=== PATIENT | male | born 1985 | race Caucasian/White ===

== ENCOUNTER 2019-11-06 13:43 | Observation (INO) | payer BC ==
[2019-11-06] MEDS ORDERED: cefOXitin 2 GM in Premix Bag 1 BAG IV ONE (14:18)
--- NOTE | 2019-11-06 14:25 | PCM.HP.2 ---
H&P History of Present Illness - General Date of Service: 11/06/19 Admit Problem/Dx: Acute abdomen Source of Information: Patient History Limitations: Reports: No Limitations - History of Present Illness Initial Comments - Free Text/Narative: Patient is a 34-year-old gentleman who presented to the emergency room in [place] earlier today with a 3 day history of abdominal pain with anorexia, nausea but no vomiting. Says he has been running a fever. Says he has felt a little constipated. 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 He does note difficulty standing up straight when he walks. He also notes pain on ambulation. States that if he hit a bump in the road, the pain is much more severe. Primarily in the right lower quadrant but does migrate across to the left lower quadrant. Symptom Onset Date: 11/03/19 Duration of Symptoms: Reports: Day(s): Location: Reports: Abdomen Quality: Reports: Ache, Pressure Severity: Moderate Improves with: Reports: Rest Worsens with: Reports: Movement Context: Reports: Sick Contact, Lifting, Exertion, Travel. Denies: Rest Associated Symptoms: Reports: Loss of Appetite, Nausea/Vomiting (No vomiting). Denies: Fever/Chills Lower Abdomen Pain Score (Numeric/FACES): 6 - Related Data Allergies/Adverse Reactions: Allergies Allergy/AdvReac Type Severity Reaction Status Date / Time No Known Allergies Allergy Verified 12/19/13 15:29 Home Medications: Home Meds Lisinopril 2 tab PO DAILY 03/02/16 [History] Past Medical History Cardiovascular History: Reports: Hypertension, Other (See Below) Musculoskeletal History: Reports: Other (See Below) Endocrine/Metabolic History: Reports: Obesity/BMI 30+ - Past Surgical History HEENT Surgical History: Reports: Oral Surgery Social & Family History - Family History Other GI Family History: Family history of colon cancer Other Family History: Nephew had malignant hyperthermia - Tobacco Use Tobacco Use Within Last Twelve Months: No - Alcohol Use Alcohol Use History: Yes Alcohol Use Frequency: Rarely H&P Review of Systems - Review of Systems: Review Of Systems: See Below General: Reports: Fever, Malaise, Decreased Appetite. Denies: Chills, Weight Loss HEENT: Reports: No Symptoms Pulmonary: Denies: Shortness of Breath, Wheezing Cardiovascular: Denies: Chest Pain, Palpitations Gastrointestinal: Reports: Abdominal Pain, Anorexia, Flatus, Nausea. Denies: Black Stool, Bloody Stool, Constipation, Diarrhea, Distension, Hematemesis, Hematochezia, Melena, Vomiting Genitourinary: Denies: Dysuria, Frequency, Burning, Pain, Urgency Musculoskeletal: Reports: No Symptoms Skin: Denies: Cyanosis, Jaundice, Mottled, Pallor, Diaphoresis, Dryness, Bruising Psychiatric: Denies: Confusion, Depression, Mood Lability, Anxiety Neurological: Denies: Confusion, Dizziness, Headache Hematologic/Lymphatic: Reports: No Symptoms Immunologic: Reports: No Symptoms Exam - Exam Exam: See Below - Vital Signs Vital Signs: Last Vital Signs Temp 96.7 F L 11/06/19 13:55 Pulse 122 H 11/06/19 13:55 Resp 18 11/06/19 13:55 BP 144/100 H 11/06/19 13:55 Pulse Ox 97 11/06/19 13:55 Weight: 213 lb 6.519 oz - Exam General: Alert, Oriented, Cooperative, Moderate Distress HEENT: Conjunctiva Clear, Nares Patent, Pupils Equal, Pupils Reactive. No: Scleral Icterus Neck: Supple, Trachea Midline Lungs: Clear to Auscultation, Normal Respiratory Effort Cardiovascular: Regular Rate, Regular Rhythm, Normal S1, Normal S2 GI/Abdominal Exam: Normal Bowel Sounds, Soft, No Distention, No Mass, Guarding, Rebound, Tender. No: Rigid (Male) Exam: No Hernia Rectal (Males) Exam: Deferred Back Exam: Normal Inspection, Full Range of Motion Extremities: Normal Inspection, Normal Range of Motion, Normal Capillary Refill Peripheral Pulses: 4+: Posterior Tibial (L), Posterior Tibial (R), Dorsalis Pedis (L), Dorsalis Pedis (R) Skin: Warm, Dry, Intact Neurological: Cranial Nerves Intact Neuro Extensive - Mental Status: Alert, Oriented x3 Psychiatric: Alert, Normal Affect, Normal Mood Sepsis Event Note - Evaluation Sepsis Screening Result: No Definite Risk - Focused Exam Vital Signs: Vital Signs Temp Pulse Resp BP Pulse Ox 11/06/19 13:55 96.7 F L 122 H 18 144/100 H 97 Date Exam was Performed: 11/06/19 Time Exam was Performed: 14:20 - Problem List (1) Appendicitis SNOMED Code(s): 00649637 ICD Code: K37 - UNSPECIFIED APPENDICITIS Status: Acute Priority: High Current Visit: Yes Qualifiers: Appendicitis type: acute appendicitis Acute appendicitis type: with localized peritonitis Appendicitis gangrene presence: unspecified whether gangrene present Appendicitis perforation presence: without perforation Appendicitis abscess presence: unspecified whether abscess present Qualified Code(s): K35.30 - Acute appendicitis with localized peritonitis, without perforation or gangrene Problem List Initiated/Reviewed/Updated: Yes Orders Last 24hrs: Active Orders 24 hr Category Date Time Status Antiembolic Devices [RC] PER UNIT ROUTINE Care 11/06/19 14:18 Ordered Insert Urinary Catheter [OM.PC] Timed Care 11/06/19 14:18 Ordered Oxygen Therapy [RC] ASDIRECTED Care 11/06/19 14:18 Ordered RT Incentive Spirometry [RC] Q1HWA Care 11/06/19 14:18 Ordered Skin Preparation [RC] .PREOP Care 11/06/19 14:18 Ordered Urinary Catheter Assessment [RC] ASDIRECTED Care 11/06/19 14:18 Ordered Urinary Catheter Assessment [RC] ASDIRECTED Care 11/06/19 14:18 Ordered Urinary Catheter Assessment [RC] ASDIRECTED Care 11/06/19 14:18 Ordered Vital Signs [RC] PER UNIT ROUTINE Care 11/06/19 14:18 Ordered Nothing Per Oral Diet [DIET] Diet 11/06/19 Lunch Ordered CORONAVIRUS COVID-19 PCR PHL Stat Lab 11/06/19 13:51 Ordered Lactated Ringers @ 125 MLS/HR(1000ml) Med 11/06/19 14:30 Ordered Lactated Ringers [Ringers, Lactated] 1,000 ml IV ASDIRECTED cefOXitin [Mefoxin in Dextrose,Iso-Osm 2 GM/50 ML] 2 gm Med 11/06/19 14:18 Ordered Premix Bag 1 bag IV ONETIME Antiembolic Hose [OM.PC] Routine Oth 11/06/19 14:18 Ordered Resuscitation Status Routine Resus Stat 11/06/19 14:18 Ordered Medication Orders Lactated Ringer's (Ringers, Lactated) 1,000 mls @ 125 mls/hr IV ASDIRECTED MICHAEL Cefoxitin Sodium 2 gm/ Premix 50 mls @ 100 mls/hr IV ONETIME ONE Stop: 11/06/19 14:47 Assessment/Plan Comment:: CT scan of the abdomen done in [place] does reveal acute appendicitis with an 11 mm appendix and periappendiceal stranding. Laparoscopic appendectomy, possible open appendectomy. Both operative procedures, along with the risks, including, but not limited to, bleeding, infection, pneumonia, deep venous thrombosis, pulmonary emboli, myocardial infarction, and adjacent organ injury have been reviewed with the patient who voices understanding, offers no questions and agrees to proceed. - Mortality Measure Prognosis:: Good
[2019-11-06] MEDS ORDERED: Lactated Ringers 1,000 ML IV SCH (14:30)
[2019-11-06] MEDS ORDERED: fentaNYL 250 MCG/5 ML SDV ONE (14:59)
[2019-11-06] MEDS ORDERED: Propofol 200 MG/20 ML SDV ONE ×4 (14:59→18:07)
[2019-11-06] MEDS ORDERED: Ondansetron 4 MG/2 ML SDV ONE (15:00)
[2019-11-06] MEDS ORDERED: Ketorolac 30 MG/ML SDV ONE (15:00)
[2019-11-06] MEDS ORDERED: HYDROmorphone 2 MG/ML Syringe ONE (15:00)
[2019-11-06] MEDS ORDERED: Midazolam 1 MG/ML 2 ML SDV ONE (15:00)
[2019-11-06] MEDS ORDERED: Lidocaine 2% 5 ML SDV ONE (15:00)
[2019-11-06] MEDS ORDERED: Rocuronium Bromide 50 MG/5 ML Syringe ONE (15:00)
[2019-11-06] MEDS ORDERED: Ketamine 500 mg/10 ML MDV ONE (15:01)
[2019-11-06] MEDS ORDERED: Bupivacaine 0.5% 10 ML SDV ONE (15:04)
[2019-11-06] MEDS ORDERED: ceFAZolin 1 GM Vial ONE ×2 (15:04→17:37)
[2019-11-06] MEDS ORDERED: Sugammadex Sodium 200 MG/2 ML VIAL ONE (15:24)
--- NOTE | 2019-11-06 15:56 | PCM.PREANE ---
Preanesthetic Assessment - Procedure Proposed Procedure: Laparoscopic, possible open, appendectomy under general anesthesia with ETT - Anesthesia/Transfusion/Family Hx Anesthesia History: Prior Anesthesia Without Reaction Other Type of Anesthesia Reaction Comment: h/o malignant hypertermia, nephew- nobody else in the family Transfusion History: No Prior Transfusion(s) - Review of Systems General: Fever, Appetite (Poor appetite s/t pain for 3 days), Other (Pt reports fever for 1-2 days with abd. pain. COVID test negative.) Pulmonary: No Symptoms Cardiovascular: No Symptoms Gastrointestinal: Abdominal Pain (abd pain for three days), Decreased Appetite Neurological: No Symptoms Other: Reports: None - Physical Assessment NPO Status Date: 11/06/19 NPO Status Time: 09:00 (Sips of water at 0900, no solids since before midnight) Vital Signs: Last Vital Signs Temp 35.9 C L 11/06/19 13:55 Pulse 122 H 11/06/19 13:55 Resp 18 11/06/19 13:55 BP 144/100 H 11/06/19 13:55 Pulse Ox 97 11/06/19 13:55 Height: 1.73 m Weight: 96.8 kg ASA Class: 2E Airway Class: Mallampati = 2 Dentition: Reports: Broken Tooth/Teeth (dentition moderate, with various chips present.) Thyro-Mental Finger Breadths: 3 Mouth Opening Finger Breadths: 3 - Lab Values: Laboratory Last Values SARS Virus RNA (PCR) NEGATIVE (NEGATIVE) 11/06/19 14:12 - Allergies Allergies/Adverse Reactions: Allergies Allergy/AdvReac Type Severity Reaction Status Date / Time No Known Allergies Allergy Verified 11/06/19 14:43 - Anesthesia Plan Free Text/Narrative:: Family (nephew) history of malignant hyperthermia. Anesthesia machine with vaporizers removed flushed for 5 hours with high flow air/O2 and MH specialty filters. All MH triggering meds and gasses avoided. Plan for ETT and TIVA with propofol, ketamine, rocuronium, and narcotic. Med Last Dose Date: 11/05/19 (Lisinopril last taken yesterday) - Acknowledgements Anesthesia Type Planned: General Anesthesia Pt an Appropriate Candidate for the Planned Anesthesia: Yes Alternatives and Risks of Anesthesia Discussed w Pt/Guardian: Yes Pt/Guardian Understands and Agrees with Anesthesia Plan: Yes Additional Comments: Risks, benefits, alternatives of GA discussed with patient. All questions answ ered and concerns addressed. Consent signed with RN as witness. PreAnesthesia Questionnaire Cardiovascular History: Reports: Hypertension, Other (See Below) Respiratory History: Reports: None Gastrointestinal History: Reports: None Genitourinary History: Reports: None Musculoskeletal History: Reports: Other (See Below) Neurological History: Reports: None Psychiatric History: Reports: None Endocrine/Metabolic History: Reports: Obesity/BMI 30+ Hematologic History: Reports: None Immunologic History: Reports: None Oncologic (Cancer) History: Reports: None Dermatologic History: Reports: None - Infectious Disease History Infectious Disease History: Reports: None - Past Surgical History HEENT Surgical History: Reports: Oral Surgery - SUBSTANCE USE Smoking Status *Q: Former Smoker Tobacco Use Within Last Twelve Months: No Recreational Drug Use History: No - HOME MEDS Home Medications: Home Meds Lisinopril 2 tab PO DAILY 03/02/16 [History] - CURRENT (IN HOUSE) MEDS Current Meds: Current Medications Lactated Ringer's (Ringers, Lactated) 1,000 mls @ 125 mls/hr IV ASDIRECTED [facility] Last Admin: 11/06/19 15:43 Dose: 125 mls/hr Documented by: Discontinued Medications Bupivacaine HCl (Sensorcaine-Mpf 0.5%) Confirm Administered Dose 10 ml .ROUTE .STK-MED ONE Stop: 11/06/19 15:05 Cefazolin Sodium (Ancef) Confirm Administered Dose 1 gm .ROUTE .STK-MED ONE Stop: 11/06/19 15:05 Fentanyl (Sublimaze) Confirm Administered Dose 250 mcg .ROUTE .STK-MED ONE Stop: 11/06/19 15:00 Hydromorphone HCl (Dilaudid) Confirm Administered Dose 2 mg .ROUTE .STK-MED ONE Stop: 11/06/19 15:01 Cefoxitin Sodium 2 gm/ Premix 50 mls @ 100 mls/hr IV ONETIME ONE Stop: 11/06/19 14:47 Last Admin: 11/06/19 15:43 Dose: 100 mls/hr Documented by: Ketamine HCl (Ketalar) Confirm Administered Dose 500 mg .ROUTE .STK-MED ONE Stop: 11/06/19 15:02 Ketorolac Tromethamine (Toradol) Confirm Administered Dose 30 mg .ROUTE .STK-MED ONE Stop: 11/06/19 15:01 Lidocaine (Xylocaine-Mpf 2%) Confirm Administered Dose 5 ml .ROUTE .STK-MED ONE Stop: 11/06/19 15:01 Midazolam HCl (Versed 1 Mg/Ml) Confirm Administered Dose 2 mg .ROUTE .STK-MED ONE Stop: 11/06/19 15:01 Ondansetron HCl (Zofran) Confirm Administered Dose 4 mg .ROUTE .STK-MED ONE Stop: 11/06/19 15:01 Propofol (Diprivan 20 Ml) Confirm Administered Dose 800 mg .ROUTE .STK-MED ONE Stop: 11/06/19 15:00 Rocuronium [place] (Rocuronium [place]) Confirm Administered Dose 50 mg .ROUTE .STK-MED ONE Stop: 11/06/19 15:01 Sugammadex Sodium (Bridion) Confirm Administered Dose 200 mg .ROUTE .STK-MED ONE Stop: 11/06/19 15:25
[2019-11-06] MEDS ORDERED: Morphine 10 MG/ML Syringe IVPUSH PRN (18:48)
[2019-11-06] MEDS ORDERED: Ondansetron 4 MG/2 ML SDV IVPUSH PRN (18:48)
[2019-11-06] MEDS ORDERED: Acetaminophen 325 MG Tab PO PRN (18:48)
--- NOTE | 2019-11-06 18:52 | PCM.OPNOTE ---
- General Post-Op/Procedure Note Date of Surgery/Procedure: 11/06/19 Operative Procedure(s): Laparoscopic appendectomy Pre Op Diagnosis: Acute abdomen, clinically appendicitis Post-Op Diagnosis: Ruptured appendix with abscess Anesthesia Technique: General ET Tube (ASA IIE) Primary Surgeon: Marquis Parrish Reimbursement Auditor: Courtney Rojas Fluid Replacement, Intraop: 1,200 Output, Urine Amount: 30 EBL in mLs: 10 Surgical Drain/Tube Type: Davi Bettencourt Flat Drain Condition: Stable Free Text/Narrative:: Intake & Output 11/06/19 11/06/19 11/06/19 03:59 11:59 19:59 Output Total 30 Balance -30 DICTATION [id number] CPT CODE 72529
--- NOTE | 2019-11-06 20:30 | PCM.POSTAN ---
POST ANESTHESIA ASSESSMENT - MENTAL STATUS Mental Status: Alert, Oriented - VITAL SIGNS Vital Signs: Last Vital Signs Temp 37.4 C 11/06/19 18:47 Pulse 103 H 11/06/19 20:00 Resp 10 L 11/06/19 20:00 BP 122/52 L 11/06/19 20:00 Pulse Ox 94 L 11/06/19 20:00 - RESPIRATORY Respiratory Status: Respiratory Rate WNL, Airway Patent, O2 Saturation Stable - CARDIOVASCULAR CV Status: Pulse Rate WNL, Blood Pressure Stable - GASTROINTESTINAL GI Status: No Symptoms - PAIN Pain Score: 0 (Denies pain) - POST OP HYDRATION Hydration Status: Adequate & Stable - OBSERVATIONS Free Text/Narrative:: Patient on RA with O2 SAT 95%, denies pain. Occasional tachycardia, but improved from preop. baseline.
--- NOTE | 2019-11-06 20:30 | PCM48HPAN ---
Post Anesthesia Note - EVALUATION WITHIN 48HRS OF ANESTHETIC Vital Signs in Normal Range: Yes Patient Participated in Evaluation: Yes Respiratory Function Stable: Yes Airway Patent: Yes Cardiovascular Function Stable: Yes Hydration Status Stable: Yes Pain Control Satisfactory: Yes Nausea and Vomiting Control Satisfactory: Yes Mental Status Recovered: Yes Vital Signs: Last Vital Signs Temp 37.4 C 11/06/19 18:47 Pulse 103 H 11/06/19 20:00 Resp 10 L 11/06/19 20:00 BP 122/52 L 11/06/19 20:00 Pulse Ox 94 L 11/06/19 20:00
[2019-11-06] MEDS: Lactated Ringers 1,000 ML IV SCH (20:41)
[2019-11-06] MEDS: cefOXitin 1 GM in Premix Bag 1 BAG IV SCH (20:46)
--- NOTE | 2019-11-06 23:14 | OR ---
SURGEON: Marquis Parrish M.D. DATE OF PROCEDURE: 11/06/2019 OPERATION PERFORMED: Laparoscopic appendectomy. PRIMARY SURGEON: Marquis Parrish MD HOME THEATER SPECIALIST: Bag Grader: GEOFFREY Matos student. ANESTHESIA: General endotracheal. ASA CLASSIFICATION: IIE. PREOPERATIVE DIAGNOSIS: Acute abdomen, appendicitis clinically and by radiologic criteria. POSTOPERATIVE DIAGNOSIS: Ruptured appendicitis with abscess. ESTIMATED BLOOD LOSS: 10 mL. INTRAOPERATIVE FLUID REPLACEMENT: 1200 mL of crystalloid. INTRAOPERATIVE URINARY OUTPUT: 30 mL. DESCRIPTION OF PROCEDURE: The patient was taken to the operating room and placed on the operating table in the supine position. Time-out was called for appropriate identification of the patient and procedure. Sequential compression boots were placed. Following satisfactory attainment of general endotracheal anesthesia, a Duque catheter was placed in the patient's urinary bladder. The abdomen was prepped with DuraPrep solution and sterile drapes were applied. The skin just above the umbilicus was infiltrated with 3 mL of 0.5% plain Marcaine. Skin incision was made and deepened through the subcutaneous tissue obtaining hemostasis with the use of electrocautery. The Veress needle was introduced into the peritoneal cavity. Saline drop test was positive. Carbon dioxide pneumoperitoneum was established with the release set at 13 cm of water. Once a satisfactory pneumoperitoneum was established, the 5 mm camera and port were placed through the supraumbilical position. Under camera vision, 12 mm suprapubic and 5 mm left lower quadrant ports were placed. Each incision was preemptively infiltrated with 0.5% plain Marcaine solution. After the incisions had been made, hemostasis was obtained with the use of electrocautery. With the 12 mm port in the suprapubic position and the 5 mm port in the left lower quadrant position, the patient was now positioned with his head down and rolled to the left. The appendix was stuck in the right lower quadrant and clearly had ruptured with a large amount of cloudy purulent-appearing fluid present. Much of this fluid was able to be aspirated. Once the appendix was mobilized, the mesoappendix was taken down with the Harmonic scalpel. The base of the appendix was transected with the Endo-BASSEM 45 mm stapler with a blue load. The appendix was promptly placed in an endocatch and maintained in situ. The pelvis and right lower quadrant were irrigated with 1 L of 2% Ancef solution followed by another liter of sterile saline. All fluid was aspirated. With the Endo Catch still in place, a 10 mm flat Davi-Bettencourt drain was placed in the right paracolic gutter. This was held in place with the two-prong grasper until the Endo Catch containing appendix and 12 mm port could be removed. The drain was then secured to the skin with a 2-0 silk suture. Wounds were inspected for hemostasis and no other bleeding was noted. Under camera vision, the left lower quadrant port was removed and finally the supraumbilical camera and port were removed. Wounds again were inspected for hemostasis. No bleeding was noted. All incisions were closed in 2 layers approximating the subcutaneous tissue with 3-0 Vicryl and the skin with skin clips. The supraumbilical and left lower quadrant incisions were dressed with sterile Tegaderm pads. The suprapubic incision was dressed with drain sponges taped in place with Mefix tape. Duque catheter was removed prior to emergence from anesthesia. Following emergence from anesthesia and extubation, the patient was taken to recovery room in stable condition. SAMAN / CLIFTON /[id number]
[2019-11-07] MEDS: Acetaminophen/HYDROcodone 325-5 MG Tab PO PRN ×3 (00:37→12:21)
[2019-11-07] MEDS: cefOXitin 1 GM in Premix Bag 1 BAG IV SCH ×4 (02:11→20:03)
[2019-11-07] MEDS: Lactated Ringers 1,000 ML IV SCH ×2 (05:48→14:06)
--- NOTE | 2019-11-07 08:35 | PCM48HPAN ---
Post Anesthesia Note - EVALUATION WITHIN 48HRS OF ANESTHETIC Vital Signs in Normal Range: Yes Patient Participated in Evaluation: Yes Respiratory Function Stable: Yes Airway Patent: Yes Cardiovascular Function Stable: Yes Hydration Status Stable: Yes Pain Control Satisfactory: Yes (Pt reports gen abd. tenderness, 4-08/10, with ongoing pain management. ) Nausea and Vomiting Control Satisfactory: Yes (Denies nausea.) Mental Status Recovered: Yes Vital Signs: Last Vital Signs Temp 36.2 C 11/07/19 08:00 Pulse 85 11/07/19 08:00 Resp 18 11/07/19 08:00 BP 134/83 11/07/19 08:00 Pulse Ox 94 L 11/07/19 08:00
[2019-11-07] MEDS ORDERED: Morphine 4 MG/ML Syringe IVPUSH PRN (08:51)
--- NOTE | 2019-11-07 08:51 | PCM.SURGPN ---
- General Info Date of Service: 11/07/19 POD#: 1 Post-Op Diagnosis: Ruptured appendicitis w/ abscess Functional Status: Reports: Pain Controlled, Tolerating Diet, Urinating. Denies: New Symptoms - Review of Systems General: Reports: Weakness, Fatigue. Denies: Fever HEENT: Reports: No Symptoms Pulmonary: Reports: Shortness of Breath, Cough Cardiovascular: Reports: Chest Pain Gastrointestinal: Reports: Abdominal Pain (incisional), Decreased Appetite, Nausea, Vomiting Genitourinary: Reports: Dysuria, Frequency, Burning Musculoskeletal: Reports: Shoulder Pain Skin: Reports: Cyanosis, Jaundice Neurological: Reports: No Symptoms Psychiatric: Reports: Confusion, Anxiety - Patient Data Vitals - Most Recent: Last Vital Signs Temp 97.2 F 11/07/19 08:00 Pulse 85 11/07/19 08:00 Resp 18 11/07/19 08:00 BP 134/83 11/07/19 08:00 Pulse Ox 94 L 11/07/19 08:00 Weight - Most Recent: 214 lb 4.629 oz I&O - Last 24 Hours: Intake & Output 11/06/19 11/07/19 11/07/19 19:59 03:59 11:59 Intake Total 1200 100 370 Output Total 60 275 Balance 1140 100 95 Lab Results Last 24 Hrs: Laboratory Results - last 24 hr 11/06/19 Range/Units 14:12 SARS Virus RNA (PCR) NEGATIVE (NEGATIVE) Med Orders - Current: Current Medications Acetaminophen (Tylenol) 325 mg PO Q4H PRN PRN Reason: Fever Greater Than 101 Hydrocodone Bitart/Acetaminophen (Barney 325-5 Mg) 1 - 2 tab PO Q4H PRN PRN Reason: Pain (moderate 4-6) Last Admin: 11/07/19 07:37 Dose: 2 tab Documented by: Lactated Ringer's (Ringers, Lactated) 1,000 mls @ 125 mls/hr IV ASDIRECTED [facility] Last Admin: 11/07/19 05:48 Dose: 125 mls/hr Documented by: Cefoxitin Sodium 1 gm/ Premix 50 mls @ 100 mls/hr IV Q6H [facility] Stop: 11/09/19 20:01 Last Admin: 11/07/19 07:40 Dose: 100 mls/hr Documented by: Morphine Sulfate (Morphine) 0 mg IVPUSH Q1H PRN PRN Reason: Pain (severe 7-10) Last Admin: 11/07/19 04:30 Dose: 2 mg Documented by: Ondansetron HCl (Zofran) 4 mg IVPUSH Q6H PRN PRN Reason: Nausea/Vomiting Discontinued Medications Bupivacaine HCl (Sensorcaine-Mpf 0.5%) Confirm Administered Dose 10 ml .ROUTE .STK-MED ONE Stop: 11/06/19 15:05 Cefazolin Sodium (Ancef) Confirm Administered Dose 1 gm .ROUTE .STK-MED ONE Stop: 11/06/19 15:05 Cefazolin Sodium (Ancef) Confirm Administered Dose 1 gm .ROUTE .STK-MED ONE Stop: 11/06/19 17:38 Fentanyl (Sublimaze) Confirm Administered Dose 250 mcg .ROUTE .STK-MED ONE Stop: 11/06/19 15:00 Hydromorphone HCl (Dilaudid) Confirm Administered Dose 2 mg .ROUTE .STK-MED ONE Stop: 11/06/19 15:01 Lactated Ringer's (Ringers, Lactated) 1,000 mls @ 125 mls/hr IV ASDIRECTED [facility] Last Admin: 11/06/19 15:43 Dose: 125 mls/hr Documented by: Cefoxitin Sodium 2 gm/ Premix 50 mls @ 100 mls/hr IV ONETIME ONE Stop: 11/06/19 14:47 Last Admin: 11/06/19 15:43 Dose: 100 mls/hr Documented by: Acetaminophen (Ofirmev) Confirm Administered Dose 100 mls @ as directed .ROUTE .STK-MED ONE Stop: 11/06/19 17:46 Ketamine HCl (Ketalar) Confirm Administered Dose 500 mg .ROUTE .STK-MED ONE Stop: 11/06/19 15:02 Ketorolac Tromethamine (Toradol) Confirm Administered Dose 30 mg .ROUTE .STK-MED ONE Stop: 11/06/19 15:01 Lidocaine (Xylocaine-Mpf 2%) Confirm Administered Dose 5 ml .ROUTE .STK-MED ONE Stop: 11/06/19 15:01 Midazolam HCl (Versed 1 Mg/Ml) Confirm Administered Dose 2 mg .ROUTE .STK-MED ONE Stop: 11/06/19 15:01 Ondansetron HCl (Zofran) Confirm Administered Dose 4 mg .ROUTE .STK-MED ONE Stop: 11/06/19 15:01 Propofol (Diprivan 20 Ml) Confirm Administered Dose 800 mg .ROUTE .STK-MED ONE Stop: 11/06/19 15:00 Propofol (Diprivan 20 Ml) Confirm Administered Dose 200 mg .ROUTE .STK-MED ONE Stop: 11/06/19 17:56 Propofol (Diprivan 20 Ml) Confirm Administered Dose 200 mg .ROUTE .STK-MED ONE Stop: 11/06/19 18:08 Propofol (Diprivan 20 Ml) Confirm Administered Dose 200 mg .ROUTE .STK-MED ONE Stop: 11/06/19 18:08 Rocuronium [place] (Rocuronium Herculaneum) Confirm Administered Dose 50 mg .ROUTE .STK-MED ONE Stop: 11/06/19 15:01 Sugammadex Sodium (Bridion) Confirm Administered Dose 200 mg .ROUTE .STK-MED ONE Stop: 11/06/19 15:25 - Exam Wound/Incisions: Dressing Dry and Intact, Erythema, Erythema Improving Quality Assessment: Supplemental Oxygen General: Alert, Oriented, Cooperative, No Acute Distress HEENT: Pupils Equal, Pupils Reactive Neck: Supple Lungs: Clear to Auscultation, Normal Respiratory Effort Cardiovascular: Regular Rate, Regular Rhythm. No: Tachycardia GI/Abdominal Exam: Normal Bowel Sounds, Soft, Non-Tender, No Distention Extremities: Normal Inspection Skin: Warm, Dry, Intact Psy/Mental Status: Alert, Normal Affect, Normal Mood Sepsis Event Note - Evaluation Sepsis Screening Result: No Definite Risk - Focused Exam Vital Signs: Vital Signs Temp Pulse Resp BP Pulse Ox 11/07/19 08:00 97.2 F 85 18 134/83 94 L 11/07/19 04:00 97.9 F 82 17 121/68 97 11/06/19 23:15 98.3 F 94 17 108/72 97 11/06/19 23:00 98 11/06/19 22:58 17 98 11/06/19 22:55 95 16 115/58 L 89 L 11/06/19 22:15 98.3 F 94 17 115/58 L 93 L 11/06/19 21:45 87 17 120/69 95 11/06/19 21:15 97.3 F 94 17 116/56 L 95 11/06/19 21:00 93 18 116/55 L 93 L Date Exam was Performed: 11/07/19 Time Exam was Performed: 08:46 - Problem List & Annotations (1) Appendicitis SNOMED Code(s): 52455496 Code(s): K37 - UNSPECIFIED APPENDICITIS Status: Acute Priority: High Current Visit: Yes Qualifiers: Appendicitis type: acute appendicitis Acute appendicitis type: with localized peritonitis Appendicitis gangrene presence: unspecified whether gangrene present Appendicitis perforation presence: without perforation Appendicitis abscess presence: unspecified whether abscess present Qualified Code(s): K35.30 - Acute appendicitis with localized peritonitis, without perforation or gangrene - Problem List Review Problem List Initiated/Reviewed/Updated: Yes - My Orders Last 24 Hours: Active Orders 24 hr Category Date Time Status Admission Status [Patient Status] [ADT] Stat ADT 11/06/19 14:29 Active Patient Status [ADT] Routine ADT 11/07/19 08:15 Active Antiembolic Devices [RC] PER UNIT ROUTINE Care 11/06/19 14:18 Active Insert Urinary Catheter [OM.PC] Timed Care 11/06/19 14:18 Ordered Intake and Output [RC] Q12H Care 11/06/19 18:48 Active Oxygen Therapy [RC] ASDIRECTED Care 11/06/19 14:18 Active Oxygen Therapy [RC] PRN Care 11/06/19 18:47 Active Pulse Oximetry [RC] ASDIRECTED Care 11/06/19 18:47 Active RT Incentive Spirometry [RC] Q1HWA Care 11/06/19 14:18 Active RT Incentive Spirometry [RC] Q1HWA Care 11/06/19 18:47 Active Skin Preparation [RC] .PREOP Care 11/06/19 14:18 Active Up ad Diamond [RC] ASDIRECTED Care 11/06/19 18:48 Active Up ad Diamond [RC] PER UNIT ROUTINE Care 11/06/19 18:47 Active Vital Signs [RC] PER UNIT ROUTINE Care 11/06/19 14:18 Active Vital Signs [RC] Q4H Care 11/06/19 18:47 Active Advance Diet Instructions [DIET] Diet 11/06/19 Dinner Active Regular Diet [DIET] Diet 11/07/19 Breakfast Active Acetaminophen [Tylenol] Med 11/06/19 18:48 Active 325 mg PO Q4H PRN Acetaminophen/HYDROcodone [Barney 325-5 MG] Med 08/05/20 18:48 Active 1 - 2 tab PO Q4H PRN Lactated Ringers [Ringers, Lactated] 1,000 ml Med 11/06/19 19:00 Active IV ASDIRECTED Morphine Med 11/06/19 18:48 Active See Dose Instructions IVPUSH Q1H PRN Ondansetron [Zofran] Med 11/06/19 18:48 Active 4 mg IVPUSH Q6H PRN cefOXitin [Mefoxin in Dextrose,Iso-Osm 1 GM/50 ML] 1 gm Med 11/06/19 20:00 Active Premix Bag 1 bag IV Q6H Antiembolic Hose [OM.PC] Routine Oth 11/06/19 14:18 Ordered Resuscitation Status Routine Resus Stat 11/06/19 14:18 Ordered Medication Orders Acetaminophen (Tylenol) 325 mg PO Q4H PRN PRN Reason: Fever Greater Than 101 Hydrocodone Bitart/Acetaminophen (Barney 325-5 Mg) 1 - 2 tab PO Q4H PRN PRN Reason: Pain (moderate 4-6) Last Admin: 11/07/19 07:37 Dose: 2 tab Documented by: Admin: 11/07/19 00:37 Dose: 1 tab Documented by: OBDULIA Lactated Ringer's (Ringers, Lactated) 1,000 mls @ 125 mls/hr IV ASDIRECTED [facility] Last Admin: 11/07/19 05:48 Dose: 125 mls/hr Documented by: Infusion: 11/07/19 04:41 Dose: 125 mls/hr Documented by: Admin: 11/06/19 20:41 Dose: 125 mls/hr Documented by: OBDULIA Cefoxitin Sodium 1 gm/ Premix 50 mls @ 100 mls/hr IV Q6H [facility] Stop: 11/09/19 20:01 Last Admin: 11/07/19 07:40 Dose: 100 mls/hr Documented by: Infusion: 11/07/19 02:41 Dose: 100 mls/hr Documented by: Admin: 11/07/19 02:11 Dose: 100 mls/hr Documented by: Infusion: 11/06/19 21:16 Dose: 100 mls/hr Documented by: Admin: 11/06/19 20:46 Dose: 100 mls/hr Documented by: OBDULIA Morphine Sulfate (Morphine) 0 mg IVPUSH Q1H PRN PRN Reason: Pain (severe 7-10) Last Admin: 11/07/19 04:30 Dose: 2 mg Documented by: OBDULIA Ondansetron HCl (Zofran) 4 mg IVPUSH Q6H PRN PRN Reason: Nausea/Vomiting - Assessment Assessment (Free Text/Narrative):: Patient is improved from pre-op. Still c/o mild right sided pain. - Plan Plan (Free Text/Narrative):: Increase activity and diet. Recheck labs in am. Leave drain in.
[2019-11-07] MEDS ORDERED: Morphine 10 MG/ML Syringe IVPUSH PRN (09:00)
[2019-11-07] MEDS: metroNIDAZOLE/Normal Saline 500 MG in Premix Bag 1 BAG IV SCH ×2 (20:41→21:41)
--- NOTE | 2019-11-07 21:12 | PCM.SN.2 ---
- Free Text/Narrative Note: Called earlier this evening as patient had spiked a temperature to 102.4. Denied any shaking chills. Was noted to be mildly hypoxic which responded to 4 L of oxygen. Was also encouraged to use his incentive spirometer. Patient seen at 1 hrs. and currently denies any pain other than a headache. Specifically he denies abdominal pain. He states he is feeling much better. PHYSICAL EXAM: HEENT: Pupils are equal round react light and accommodation. No significant malar flush. CARDIORESPIRATORY: Lungs are clear to auscultation bilaterally. Heart is again regular rate and rhythm without significant tachycardia. ABDOMEN: Soft nontender. Hypoactive bowel sounds. Davi-Bettencourt is draining serous fluid. IMPRESSION: Postop fever most likely pulmonary in etiology. Blood cultures have been done. Labs are ordered for the morning to include a CBC with a manual differential and a BMP. We will continue IV fluids. Flagyl was added to the antibiotic regimen.
[2019-11-08] MEDS: Acetaminophen/HYDROcodone 325-5 MG Tab PO PRN ×5 (01:23→21:25)
[2019-11-08] MEDS: Lactated Ringers 1,000 ML IV SCH ×3 (01:24→21:27)
[2019-11-08] MEDS: cefOXitin 1 GM in Premix Bag 1 BAG IV SCH ×4 (01:25→20:07)
[2019-11-08] MEDS: metroNIDAZOLE/Normal Saline 500 MG in Premix Bag 1 BAG IV SCH ×3 (05:42→21:26)
[2019-11-08 06:56] LABS: BLOOD UREA NITROGEN,BUN 11 mg/dL (7.0-18.0); CARBON DIOXIDE,CO2 27.4 mmol/L (21.0-32.0); CHLORIDE,CL 98 mmol/L (98-107); GLUCOSE RANDOM 94 mg/dL (74-106); POTASSIUM,K 3.7 mmol/L (3.5-5.1); SODIUM,NA 135 mmol/L (136-148)
[2019-11-09] MEDS: cefOXitin 1 GM in Premix Bag 1 BAG IV SCH ×2 (01:53→08:55)
[2019-11-09] MEDS: Acetaminophen/HYDROcodone 325-5 MG Tab PO PRN ×2 (02:03→08:54)
[2019-11-09] MEDS: metroNIDAZOLE/Normal Saline 500 MG in Premix Bag 1 BAG IV SCH (05:06)
[2019-11-09] MEDS: Lactated Ringers 1,000 ML IV SCH (05:06)
--- NOTE | 2019-11-09 09:46 | PCM.DCSUM1 ---
Discharge Summary - Hospital Course Free Text/Narrative:: 34 y/o male admitted with acute appendicitis. Found to have a ruptured appendix with abscess. Has been recovering well. Kept on Mefoxin and Flagyl. WBC 10K yesterday. Remains afebrile. SaO2 does drop at night-suspect undiagnosed sleep apnea/hypoxia. HPI Initial Comments: See H&P - Discharge Data Discharge Date: 11/09/19 Discharge Disposition: Home, Self-Care 01 Condition: Stable - Referral to Home Health Primary Care Physician: Matthew Mancera MD - Discharge Diagnosis/Problem(s) (1) Appendicitis SNOMED Code(s): 07164077 ICD Code: K37 - UNSPECIFIED APPENDICITIS Status: Acute Priority: High Current Visit: Yes Qualifiers: Appendicitis type: acute appendicitis Acute appendicitis type: with localized peritonitis Appendicitis gangrene presence: unspecified whether gangrene present Appendicitis perforation presence: with perforation Appendicitis abscess presence: with abscess Qualified Code(s): K35.33 - Acute appendicitis with perforation and localized peritonitis, with abscess - Patient Summary/Data Operative Procedure(s) Performed: Laparoscopic appendectomy - Patient Instructions Diet: Usual Diet as Tolerated Activity: No Lifting Over 25 Pounds (For 6 weeks) Showering/Bathing: May Shower Wound/Incision Care: Keep Operative Site/Wound Site Clean and Dry Notify Provider of: Fever, Increased Pain Other/Special Instructions: See Dr. Parrish in 7-10 days as scheduled. - Discharge Plan Prescriptions/Med Rec: Ciprofloxacin HCl [Cipro] 500 mg PO BID 5 Days #10 tablet metroNIDAZOLE [Flagyl] 500 mg PO Q8H 5 Days #15 tab Acetaminophen/HYDROcodone [Francis 325-5 MG] 1 tab PO Q6H PRN 4 Days #15 tablet PRN Reason: Pain (Moderate 4-6) Home Medications: Home Meds Lisinopril 2 tab PO DAILY 03/02/16 [History] Acetaminophen/HYDROcodone [Francis 325-5 MG] 1 tab PO Q6H PRN 4 Days #15 tablet 11/08/19 [Rx] Ciprofloxacin HCl [Cipro] 500 mg PO BID 5 Days #10 tablet 11/08/19 [Rx] metroNIDAZOLE [Flagyl] 500 mg PO Q8H 5 Days #15 tab 11/08/19 [Rx] Patient Handouts: Acetaminophen; Hydrocodone tablets or capsules, Laparoscopic Appendectomy, Adult, Care After, Ciprofloxacin tablets, Appendicitis, Adult, [id number], Metronidazole tablets or capsules Referrals: Marquis Parrish MD [Emergency Provider] - 11/14/19 10:45 am - Discharge Summary/Plan Comment DC Time >30 min.: No - General Info Date of Service: 11/09/19 Admission Dx/Problem (Free Text: Acute abdomen Functional Status: Reports: Pain Controlled, Tolerating Diet, Ambulating, Urinating. Denies: New Symptoms - Review of Systems General: Denies: Fever, Weakness, Fatigue, Malaise HEENT: Reports: No Symptoms Pulmonary: Denies: Shortness of Breath, Cough Cardiovascular: Denies: Chest Pain, Palpitations, Dyspnea on Exertion Gastrointestinal: Denies: Abdominal Pain, Constipation, Decreased Appetite, Diarrhea, Nausea, Vomiting Genitourinary: Denies: Dysuria, Frequency, Burning, Pain, Urgency Musculoskeletal: Denies: Neck Pain, Shoulder Pain, Arm Pain Skin: Denies: Cyanosis, Jaundice, Mottled Neurological: Reports: No Symptoms Psychiatric: Reports: No Symptoms - Patient Data Vitals - Most Recent: Last Vital Signs Temp 96.6 F L 11/09/19 04:18 Pulse 87 11/09/19 04:18 Resp 17 11/09/19 04:18 BP 139/86 11/09/19 04:18 Pulse Ox 93 L 11/09/19 04:18 Weight - Most Recent: 214 lb 4.629 oz I&O - Last 24 hours: Intake & Output 11/08/19 11/09/19 11/09/19 19:59 03:59 11:59 Intake Total 4372 102 0670 Output Total 1340 1045 Balance 518 200 338 MARY Results - Last 24 hrs: Microbiology 11/07/19 20:35 Aerobic Blood Culture - Preliminary Blood - Venous - Lab Draw NO GROWTH AFTER 1 DAY Anaerobic Blood Culture - Preliminary NO GROWTH AFTER 1 DAY 11/07/19 20:22 Aerobic Blood Culture - Preliminary Blood - Venous NO GROWTH AFTER 1 DAY Anaerobic Blood Culture - Preliminary NO GROWTH AFTER 1 DAY Med Orders - Current: Current Medications Acetaminophen (Tylenol) 325 mg PO Q4H PRN PRN Reason: Fever Greater Than 101 Last Admin: 11/07/19 20:03 Dose: 325 mg Documented by: Hydrocodone Bitart/Acetaminophen (Francis 325-5 Mg) 1 - 2 tab PO Q4H PRN PRN Reason: Pain (moderate 4-6) Last Admin: 11/09/19 08:54 Dose: 2 tab Documented by: Lactated Ringer's (Ringers, Lactated) 1,000 mls @ 125 mls/hr IV ASDIRECTED [facility] Last Admin: 11/09/19 05:06 Dose: 125 mls/hr Documented by: Cefoxitin Sodium 1 gm/ Premix 50 mls @ 100 mls/hr IV Q6H [facility] Stop: 11/09/19 20:01 Last Admin: 11/09/19 08:55 Dose: 100 mls/hr Documented by: Metronidazole 500 mg/ Premix 100 mls @ 100 mls/hr IV Q8H [facility] Last Admin: 11/09/19 05:06 Dose: 100 mls/hr Documented by: Morphine Sulfate (Morphine) 0 mg IVPUSH Q1H PRN PRN Reason: Pain (severe 7-10) Last Admin: 11/07/19 17:21 Dose: 4 mg Documented by: Ondansetron HCl (Zofran) 4 mg IVPUSH Q6H PRN PRN Reason: Nausea/Vomiting Last Admin: 11/07/19 17:21 Dose: 4 mg Documented by: Discontinued Medications Bupivacaine HCl (Sensorcaine-Mpf 0.5%) Confirm Administered Dose 10 ml .ROUTE .STK-MED ONE Stop: 11/06/19 15:05 Cefazolin Sodium (Ancef) Confirm Administered Dose 1 gm .ROUTE .STK-MED ONE Stop: 11/06/19 15:05 Cefazolin Sodium (Ancef) Confirm Administered Dose 1 gm .ROUTE .STK-MED ONE Stop: 11/06/19 17:38 Fentanyl (Sublimaze) Confirm Administered Dose 250 mcg .ROUTE .STK-MED ONE Stop: 11/06/19 15:00 Hydromorphone HCl (Dilaudid) Confirm Administered Dose 2 mg .ROUTE .STK-MED ONE Stop: 11/06/19 15:01 Lactated Ringer's (Ringers, Lactated) 1,000 mls @ 125 mls/hr IV ASDIRECTED [facility] Last Admin: 11/06/19 15:43 Dose: 125 mls/hr Documented by: Cefoxitin Sodium 2 gm/ Premix 50 mls @ 100 mls/hr IV ONETIME ONE Stop: 11/06/19 14:47 Last Admin: 11/06/19 15:43 Dose: 100 mls/hr Documented by: Acetaminophen (Ofirmev) Confirm Administered Dose 100 mls @ as directed .ROUTE .STK-MED ONE Stop: 11/06/19 17:46 Metronidazole 500 mg/ Premix 100 mls @ 100 mls/hr IV Q1H [facility] Stop: 11/07/19 22:29 Last Admin: 11/07/19 21:41 Dose: 100 mls/hr Documented by: Ketamine HCl (Ketalar) Confirm Administered Dose 500 mg .ROUTE .STK-MED ONE Stop: 11/06/19 15:02 Ketorolac Tromethamine (Toradol) Confirm Administered Dose 30 mg .ROUTE .STK-MED ONE Stop: 11/06/19 15:01 Lidocaine (Xylocaine-Mpf 2%) Confirm Administered Dose 5 ml .ROUTE .STK-MED ONE Stop: 11/06/19 15:01 Midazolam HCl (Versed 1 Mg/Ml) Confirm Administered Dose 2 mg .ROUTE .STK-MED ONE Stop: 11/06/19 15:01 Morphine Sulfate (Morphine) 0 mg IVPUSH Q1H PRN PRN Reason: Pain (severe 7-10) Last Admin: 11/07/19 04:30 Dose: 2 mg Documented by: Morphine Sulfate (Morphine) 0 mg IVPUSH Q1H PRN PRN Reason: Pain (severe 7-10) Ondansetron HCl (Zofran) Confirm Administered Dose 4 mg .ROUTE .STK-MED ONE Stop: 11/06/19 15:01 Propofol (Diprivan 20 Ml) Confirm Administered Dose 800 mg .ROUTE .STK-MED ONE Stop: 11/06/19 15:00 Propofol (Diprivan 20 Ml) Confirm Administered Dose 200 mg .ROUTE .STK-MED ONE Stop: 11/06/19 17:56 Propofol (Diprivan 20 Ml) Confirm Administered Dose 200 mg .ROUTE .STK-MED ONE Stop: 11/06/19 18:08 Propofol (Diprivan 20 Ml) Confirm Administered Dose 200 mg .ROUTE .STK-MED ONE Stop: 11/06/19 18:08 Rocuronium [place] (Rocuronium [place]) Confirm Administered Dose 50 mg .ROUTE .STK-MED ONE Stop: 08/05/20 15:01 Sugammadex Sodium (Bridion) Confirm Administered Dose 200 mg .ROUTE .[facility]-MED ONE Stop: 11/06/19 15:25 - Exam Quality Assessment: Reports: Supplemental Oxygen (only at night) General: Reports: Alert, Oriented, Cooperative, No Acute Distress HEENT: Reports: Pupils Equal, Pupils Reactive. Denies: Scleral Icterus Neck: Reports: Supple Lungs: Reports: Clear to Auscultation, Normal Respiratory Effort Cardiovascular: Reports: Regular Rate, Regular Rhythm. Denies: Tachycardia GI/Abdominal Exam: Normal Bowel Sounds, Soft, Non-Tender, Other (JALIL removed without difficulty. Output 15ml/12 hours, serous in nature.) (Male) Exam: Deferred Rectal (Males) Exam: Deferred Back Exam: Reports: Normal Inspection Extremities: Normal Inspection, Normal Range of Motion Skin: Reports: Warm, Dry, Intact Wound/Incisions: Reports: Healing Well Neurological: Reports: No New Focal Deficit Psy/Mental Status: Reports: Alert, Normal Affect, Normal Mood Discharge Operative/Procedures - Procedures Performed Operations: Laparoscopic appendectomy
[2019-11-09 11:54] VITALS: BP 140/90; PULSE 89
--- NOTE | 2019-11-11 11:22 | PCM.SURGPN ---
- General Info Date of Service: 11/08/19 POD#: 2 Post-Op Diagnosis: Acute appendicitis with fecalith Functional Status: Reports: Pain Controlled, Tolerating Diet - Review of Systems General: Denies: Fever, Weakness, Fatigue HEENT: Reports: No Symptoms Pulmonary: Denies: Shortness of Breath, Wheezing Cardiovascular: Denies: Chest Pain Gastrointestinal: Reports: Abdominal Pain. Denies: Constipation, Decreased Appetite, Nausea, Vomiting Genitourinary: Reports: No Symptoms Musculoskeletal: Reports: No Symptoms Skin: Reports: No Symptoms Neurological: Reports: No Symptoms Psychiatric: Reports: No Symptoms - Patient Data Vitals - Most Recent: Last Vital Signs Temp 97.7 F 11/09/19 08:00 Pulse 89 11/09/19 08:00 Resp 16 11/09/19 08:00 BP 140/90 11/09/19 08:00 Pulse Ox 93 L 11/09/19 08:00 Weight - Most Recent: 214 lb 4.629 oz Lan Results Last 24 Hrs: Microbiology 11/07/19 20:35 Aerobic Blood Culture - Preliminary Blood - Venous - Lab Draw NO GROWTH AFTER 3 DAYS Anaerobic Blood Culture - Preliminary NO GROWTH AFTER 3 DAYS 11/07/19 20:22 Aerobic Blood Culture - Preliminary Blood - Venous NO GROWTH AFTER 3 DAYS Anaerobic Blood Culture - Preliminary NO GROWTH AFTER 3 DAYS Med Orders - Current: Current Medications Discontinued Medications Acetaminophen (Tylenol) 325 mg PO Q4H PRN PRN Reason: Fever Greater Than 101 Last Admin: 11/07/19 20:03 Dose: 325 mg Documented by: Hydrocodone Bitart/Acetaminophen ([place] 325-5 Mg) 1 - 2 tab PO Q4H PRN PRN Reason: Pain (moderate 4-6) Last Admin: 11/09/19 08:54 Dose: 2 tab Documented by: Bupivacaine HCl (Sensorcaine-Mpf 0.5%) Confirm Administered Dose 10 ml .ROUTE .STK-MED ONE Stop: 11/06/19 15:05 Cefazolin Sodium (Ancef) Confirm Administered Dose 1 gm .ROUTE .STK-MED ONE Stop: 11/06/19 15:05 Cefazolin Sodium (Ancef) Confirm Administered Dose 1 gm .ROUTE .STK-MED ONE Stop: 11/06/19 17:38 Fentanyl (Sublimaze) Confirm Administered Dose 250 mcg .ROUTE .STK-MED ONE Stop: 11/06/19 15:00 Hydromorphone HCl (Dilaudid) Confirm Administered Dose 2 mg .ROUTE .STK-MED ONE Stop: 11/06/19 15:01 Lactated Ringer's (Ringers, Lactated) 1,000 mls @ 125 mls/hr IV ASDIRECTED [facility] Last Admin: 11/06/19 15:43 Dose: 125 mls/hr Documented by: Cefoxitin Sodium 2 gm/ Premix 50 mls @ 100 mls/hr IV ONETIME ONE Stop: 11/06/19 14:47 Last Admin: 11/06/19 15:43 Dose: 100 mls/hr Documented by: Acetaminophen (Ofirmev) Confirm Administered Dose 100 mls @ as directed .ROUTE .STK-MED ONE Stop: 11/06/19 17:46 Lactated Ringer's (Ringers, Lactated) 1,000 mls @ 125 mls/hr IV ASDIRECTED [facility] Last Admin: 11/09/19 05:06 Dose: 125 mls/hr Documented by: Cefoxitin Sodium 1 gm/ Premix 50 mls @ 100 mls/hr IV Q6H [facility] Stop: 11/09/19 20:01 Last Admin: 11/09/19 08:55 Dose: 100 mls/hr Documented by: Metronidazole 500 mg/ Premix 100 mls @ 100 mls/hr IV Q8H [facility] Last Admin: 11/09/19 05:06 Dose: 100 mls/hr Documented by: Metronidazole 500 mg/ Premix 100 mls @ 100 mls/hr IV Q1H [facility] Stop: 11/07/19 22:29 Last Admin: 11/07/19 21:41 Dose: 100 mls/hr Documented by: Ketamine HCl (Ketalar) Confirm Administered Dose 500 mg .ROUTE .STK-MED ONE Stop: 11/06/19 15:02 Ketorolac Tromethamine (Toradol) Confirm Administered Dose 30 mg .ROUTE .STK-MED ONE Stop: 11/06/19 15:01 Lidocaine (Xylocaine-Mpf 2%) Confirm Administered Dose 5 ml .ROUTE .STK-MED ONE Stop: 11/06/19 15:01 Midazolam HCl (Versed 1 Mg/Ml) Confirm Administered Dose 2 mg .ROUTE .STK-MED ONE Stop: 11/06/19 15:01 Morphine Sulfate (Morphine) 0 mg IVPUSH Q1H PRN PRN Reason: Pain (severe 7-10) Last Admin: 11/07/19 04:30 Dose: 2 mg Documented by: Morphine Sulfate (Morphine) 0 mg IVPUSH Q1H PRN PRN Reason: Pain (severe 7-10) Morphine Sulfate (Morphine) 0 mg IVPUSH Q1H PRN PRN Reason: Pain (severe 7-10) Last Admin: 11/07/19 17:21 Dose: 4 mg Documented by: Ondansetron HCl (Zofran) Confirm Administered Dose 4 mg .ROUTE .STK-MED ONE Stop: 11/06/19 15:01 Ondansetron HCl (Zofran) 4 mg IVPUSH Q6H PRN PRN Reason: Nausea/Vomiting Last Admin: 11/07/19 17:21 Dose: 4 mg Documented by: Propofol (Diprivan 20 Ml) Confirm Administered Dose 800 mg .ROUTE .STK-MED ONE Stop: 11/06/19 15:00 Propofol (Diprivan 20 Ml) Confirm Administered Dose 200 mg .ROUTE .STK-MED ONE Stop: 11/06/19 17:56 Propofol (Diprivan 20 Ml) Confirm Administered Dose 200 mg .ROUTE .STK-MED ONE Stop: 11/06/19 18:08 Propofol (Diprivan 20 Ml) Confirm Administered Dose 200 mg .ROUTE .STK-MED ONE Stop: 11/06/19 18:08 Rocuronium Farley (Rocuronium Farley) Confirm Administered Dose 50 mg .ROUTE .STK-MED ONE Stop: 11/06/19 15:01 Sugammadex Sodium (Bridion) Confirm Administered Dose 200 mg .ROUTE .STK-MED ONE Stop: 11/06/19 15:25 - Exam Wound/Incisions: Dressing Dry and Intact, Drainage (per JALIL) Quality Assessment: Supplemental Oxygen General: Alert, Oriented, Cooperative, Mild Distress HEENT: Pupils Equal, Pupils Reactive. No: Scleral Icterus Neck: Supple Lungs: Clear to Auscultation, Normal Respiratory Effort Cardiovascular: Regular Rate, Regular Rhythm. No: Tachycardia GI/Abdominal Exam: Normal Bowel Sounds, Soft, Tender (along right side where JALIL is situated) Extremities: Normal Inspection Skin: Warm, Dry, Intact Neurological: No New Focal Deficit Psy/Mental Status: Alert, Normal Affect, Normal Mood Sepsis Event Note - Evaluation Sepsis Screening Result: No Definite Risk - Focused Exam Date Exam was Performed: 11/11/19 Time Exam was Performed: 11:19 - Problem List & Annotations (1) Appendicitis SNOMED Code(s): 91927759 Code(s): K37 - UNSPECIFIED APPENDICITIS Status: Acute Priority: High Qualifiers: Appendicitis type: acute appendicitis Acute appendicitis type: with localized peritonitis Appendicitis gangrene presence: unspecified whether gangrene present Appendicitis perforation presence: with perforation Appendicitis abscess presence: with abscess Qualified Code(s): K35.33 - Acute appendicitis with perforation and localized peritonitis, with abscess - Problem List Review Problem List Initiated/Reviewed/Updated: Yes - Assessment Assessment (Free Text/Narrative):: Patient continues to show slow improvement. WBC back in normal range. - Plan Plan (Free Text/Narrative):: Increase activity. Continue parenteral antibiotics. Remove drain and plan for discharge on 11/09/19.
== END 2019-11-09 11:04 | disposition home or self-care (01) ==
LOC: MW.SDS 13:43 → MW.ED 13:43 → EDSTATUS 14:31 → INTOOBSV 14:40 → MW.MS 14:40
PROVIDERS: ADMIT Surgery; ATTEND Surgery
DX: K35.33 Acute appendicitis with perforation, localized peritonitis, and gangrene, with abscess (principal); K38.1 Appendicular concretions; I10 Essential (primary) hypertension; E66.9 Obesity, unspecified; Z11.59 Encounter for screening for other viral diseases; Z79.899 Other long term (current) drug therapy; Z68.32 Body mass index [BMI] 32.0-32.9, adult
CPT/HCPCS: 36415; 44970; 80048; 85007; 85027; 87040; 87635; 88304; A9270; J0131; J0690; J0694; J1170; J1885; J2001; J2250; J2270; J2405; J2704; J3010; J3490; J7120; 00840; U0002